=== PATIENT | female | born 1960 | race American Indian/Alaskan Native ===

== ENCOUNTER → 2025-02-05 | Emergency (ER) | payer OTHER ==
[~2025-02-05] VITALS: Ht 160 cm; Wt 92.1 kg
[~2025-02-05] MED LIST: FAMOTIDINE40 MG PO; KETOROLAC TROMETHAMINE 60 MG VIAL IM ONE; NORFLEX100MG PO; ORPHENADRINE CITRATE 30 MG/ML AMPUL IM ONE; SYNTHROID150 MCG PO; SYNTHROID175 MCG PO
== END | disposition home or self-care (01) ==
LOC: ER 10:43
DX: M25.571 Pain in right ankle and joints of right foot (principal); M25.512 Pain in left shoulder